=== PATIENT | female | born 1930 | race Caucasian/White ===

== ENCOUNTER → 2017-03-01 | Outpatient (CLI) | payer OTHER ==
[~2017-03-01] MED LIST: ASPIR 8181 M1; BACTRIM DS TAB1 EACH PO; CALCIUM 500 +1 EAC5; CEFDINIR300 MG PO; COZAAR 25 MG TA25 M2 PO; FLORINEF ACETA0.1 MG PO; KEFLEX500 MG PO; MIRALAX17 GM PO; NABUMETONE 750750 M1 PO; NORCO 5-325 TA1 EACH PO; OSTEO BI-FLEX1 EAC2; SINEMET 25-1001 EAC1 PO; SINEMET 25-2501 EAC1 PO; TOLTERODINE TART2 MG PO; TYLENOL325 MG PO
== END ==
LOC: RAD 08:52
DX: R05 Cough (principal)